=== PATIENT | male | born 1960 | race Caucasian/White ===

== ENCOUNTER 2017-04-26 10:20 | Emergency (ER) | payer OTHER, MEDICAID ==
[2017-04-26 10:33] VITALS: RESP 17
--- NOTE | 2017-04-26 11:10 | EDPHY ---
H & P Smoking Status: Light smoker Time Seen by Provider: 04/26/17 10:49 HPI/ROS: CHIEF COMPLAINT: Blood in left ear HISTORY OF PRESENT ILLNESS: 56-year-old male presents to the emergency department with currently in custody at the [facility] and presents with [facility] with complaints of blood in his ear since yesterday. Patient states that he was playing a rough came of hand ball in prison and was hit multiple times in his left ear. He is now having pain and having blood draining from his left ear. The patient had surgery to the left ear 20 years ago and had a mastoidectomy and has 100% hearing loss in the left ear since the surgery. No symptoms in the right ear. No URI symptoms. No chest pain or difficulty breathing. No abdominal pain. No headache. No neck pain. REVIEW OF SYSTEMS: Constitutional: No fever, no chills. Eyes: No double or blurry vision. ENT: Blood in left ear as noted above. No sore throat. Respiratory: No cough, no shortness of breath. Cardiac: No chest pain. Gastrointestinal: No abdominal pain, vomiting or diarrhea. Genitourinary: No dysuria. Musculoskeletal: No neck or back pain. Skin: No rashes. Neurological: No headache. (Nakita Brown) Past Medical/Surgical History: Hypertension, anxiety, depression, bipolar, constipation, pancreatitis, liver cancer, mastoidectomy left ear, left ear surgery, chronic hearing loss left ear , orthopedic surgery (Nakita Brown) Social History: (Nakita Brown) Physical Exam: General Appearance: Alert, no distress. 168/96, heart rate 75, 96% on room air. Eyes: Pupils equal and round. Extraocular motions are all intact. ENT: Mouth: Mucous membranes moist. Right ear is clear. The left ear reveals scar tissue involving the majority of the left tympanic membrane. There is some bright red blood noted in the external auditory canal, however it is not pooling or dripping out of his ear. I am unable to visualize anything behind the tympanic membrane due to the scar tissue. Looking at the left ear there is no swelling, redness or bruising. No lacerations. There is no pain postauricular or pre-auricular. No tragal motion tenderness. Respiratory: No wheezing, rhonchi, or rales, lungs are clear to auscultation. Cardiovascular: Regular rate and rhythm. Gastrointestinal: Abdomen is soft and nontender, no masses, no rebound or guarding, bowel sounds normal. Neurological: Alert and oriented x 3, cranial nerves II through XII grossly intact Skin: Warm and dry, no rashes. Musculoskeletal: Nontender to palpate along the cervical, thoracic or lumbar spine. Neck is supple. Extremities: Full range of motion and no peripheral edema. Psychiatric: Patient is oriented X 3, there is no agitation. (Nakita Brown) Constitutional: Initial Vital Signs Temperature (C) 36.5 C 04/26/17 10:26 Heart Rate 75 04/26/17 10:26 Respiratory Rate 17 04/26/17 10:26 Blood Pressure 168/96 H 04/26/17 10:26 O2 Sat (%) 96 04/26/17 10:26 O2 Delivery Mode Room Air Allergies/Adverse Reactions: Penicillins Allergy (Severe, Verified 04/26/17 10:26) Swelling/neck,face,throat Home Medications: Medication Instructions Recorded Ciprofloxacin/Dexamethasone 4 rc LEFTEAR BID #0 otic.btl 04/26/17 [Ciprodex] Metformin 1000 mg 04/26/17 PRILOSEC 04/26/17 Medical Decision Making ED Course/Re-evaluation: 56-year-old male with a history of previous left mastoidectomy presents with blood in his left ear after playing handball in prison. I spoke with on-call ENT physician it administrative assistant, Kaiden, who recommended starting the patient on Ciprodex otic drops 4 drops twice daily for 1 week. He states that even if he had a ruptured tympanic membrane which may be hard to visualize , he still recommended placing the patient on Ciprodex otic drops and they would see the patient in follow-up next week. This was explained to the patient as well as the [facility] who was at bedside who verbalized understanding and agreed. (Nakita Brown) I did not see this patient while he was in the emergency department. However his care was discussed with the PA while the patient was in the department. I agree with treatment plan and management (Gabriel Davies) Departure - Departure Disposition: Home, Routine, Self-Care Clinical Impression: Trauma left ear, Pain in left ear Condition: Good Instructions: Earache (ED) Additional Instructions: Ciprodex drops 4 drops twice daily for 7 days to the left ear. Follow up with ENT this week to recheck. Return to the emergency department or call ENT if you developed a large amount of brisk bleeding from your left ear or any other concerns. Referrals: Johann Ivory MD [Medical Doctor] - 5-7 days, call for appt. (ENT on-call) Prescriptions: Ciprofloxacin/Dexamethasone [Ciprodex] 4 rc LEFTEAR BID #0 otic.btl
[2017-04-26 12:24] VITALS: BP 134/81; PULSE 84; TEMP 98.1; O2SAT 95
== END 2017-04-26 12:23 | disposition home or self-care (01) ==
DX: S09.91XA Unspecified injury of ear, initial encounter (principal); I10 Essential (primary) hypertension; F17.200 Nicotine dependence, unspecified, uncomplicated; Z85.05 Personal history of malignant neoplasm of liver; W22.8XXA Striking against or struck by other objects, initial encounter; Y92.149 Unspecified place in prison as the place of occurrence of the external cause; Y99.8 Other external cause status; Y93.83 Activity, rough housing and horseplay

== ENCOUNTER 2017-05-31 23:53 | Emergency (ER) | payer OTHER, MEDICAID ==
[2017-06-01 00:06] VITALS: BP 154/76; PULSE 80; RESP 16; TEMP 97.9; O2SAT 93
--- NOTE | 2017-06-01 00:21 | EDPHY ---
H & P Smoking Status: Light smoker Time Seen by Provider: 06/01/17 00:18 HPI/ROS: CHIEF COMPLAINT: Abscess on back HISTORY OF PRESENT ILLNESS: 56-year-old male currently incarcerated arrives via shows diabetes complaining of a progressively enlarging left back abscess which was incised and drained by the physician at the group home 5 days ago but continues to be painful and erythematous. He is on oral doxycycline. No fever no chills no nausea no vomiting. PHYSICAL EXAM (Prior to examination, patient consented to physical exam, hands were washed and my usual and customary physical exam procedures followed) 1) GENERAL: Well-developed, well-nourished, alert and oriented. Appears to be in no acute distress. 2) HEAD: Normocephalic 3) HEENT: sclera anicteric 4) LUNGS: Breathing comfortably. 5) SKIN: left back there is a 4 cm x 2 cm area of erythema induration with central fluctuance and incision. No active drainage . No crepitus (Valery Holcomb) Constitutional: Initial Vital Signs Temperature (C) 36.6 C 05/31/17 23:57 Heart Rate 80 05/31/17 23:57 Respiratory Rate 16 05/31/17 23:57 Blood Pressure 154/76 H 05/31/17 23:57 O2 Sat (%) 93 05/31/17 23:57 O2 Delivery Mode Room Air Allergies/Adverse Reactions: Penicillins Allergy (Severe, Verified 05/31/17 23:55) Swelling/neck,face,throat Home Medications: Medication Instructions Recorded Doxycycline Hyclate 05/31/17 Glyburide 05/31/17 MOTRIN 05/31/17 Ranitidine HCl 05/31/17 MDM/Departure - MDM Procedures: Procedure: Abscess drainage. The patient's abscess was located on the left-sided back. I obtained verbal consent from the patient to drain the abscess who was informed about the possibility of bleeding and pain. The abscess was incised with a 11. scalpel and a moderate amount of purulent drainage was expressed. I irrigated the wound . The patient tolerated the procedure well. The procedure was performed by myself. (Valery Holcomb) ED Course/Re-evaluation: Recommend patient continue his antibiotics until finished. He will follow up with the group home nurse in the group home medical provider.. Doubt necrotizing fasciitis. Doubt sepsis. (Valery Holcomb) PHYSICIAN DOCUMENTATION: The patient was evaluated and managed by the Physician Receiving Tank Operator. My co- signature indicates that I have reviewed this chart and I agree with the findings and plan of care as documented. I am the secondary supervising physician. (Enid Suresh) - Depart Disposition: Home, Routine, Self-Care Clinical Impression: Abscess of back Condition: Good Instructions: Abscess (ED) Additional Instructions: Keep taking your antibiotics until finished Referrals: Follow-up, with the group home nurse in 1 day [Other] - As per Instructions
== END 2017-06-01 00:31 | disposition home or self-care (01) ==
PROC: 0H96XZZ Drainage of Back Skin, External Approach (ICD-10-PCS; principal; 2017-05-31)
DX: L02.212 Cutaneous abscess of back [any part, except buttock and flank] (principal)

== ENCOUNTER 2019-03-09 11:44 | Emergency (ER) | payer MEDICAID, OTHER ==
--- NOTE | 2019-03-09 12:00 | EDPHY ---
H & P Stated Complaint: cough, lung pain Time Seen by Provider: 03/09/19 11:55 HPI/ROS: HPI: This is a 58-year-old male who presents with Chief Complaint: Cough, lung pain Location: Chest Quality: Cough, pain Duration: Signs and Symptoms: no shortness of breath at rest, no shortness of breath on exertion, + nonproductive cough, no chest pain, no palpitations, no lower extremity edema, no wheezing, no orthopnea, no paroxysmal nocturnal dyspnea, no fever, no injury/trauma, no hemoptysis, no carpal pedal spasms, no hemoptysis Timing: Sudden onset, worse last Severity: [id number] Context: Patient reports 2 days ago he was in 100 year old home in the attic approximately for 15 min taking pictures of the old instillation with the insurance professional. He reports that last night he started to developed a nonproductive dry cough with generalized anterior and posterior chest discomfort with coughing episodes. Patient is a current every day smoker for the last 3 months after quitting for 4 years. No history of lung disease. Denies fever, chest pain, shortness of breath, lower extremity edema. Modifying Factors: None Comment: ROS: A comprehensive 10 system review of systems is otherwise negative aside from elements mentioned in the history of present illness. MEDICAL/SURGICAL/SOCIAL HISTORY: Medical history: Generally healthy. Does not take any regular medications. Surgical history: Denies Social history: Owns a [employer] business. . Smoker. CONSTITUTIONAL: Extremely well-appearing polite middle-aged white male, awake and alert, no obvious distress HEENT: Atraumatic and normocephalic, PERRL, EOMI. Nares patent; no rhinorrhea; no nasal mucosal edema. Tympanic membranes clear. Oropharynx clear, no exudate and moist pink mucosa. Airway patent. No lymphadenopathy. No meningismus. Cardiovascular: Normal S1/S2, regular rate, regular rhythm, without murmur rub or gallop. PULMONARY/CHEST: Symmetrical and nontender. Clear to auscultation bilaterally. Good air movement. No accessory muscle usage. ABDOMEN: Soft, nondistended, nontender, no rebound, no guarding, no peritoneal signs, no masses or organomegaly. No CVAT. EXTREMITIES: 2/2 pulses, strength 5/5, no deformities, no clubbing, no cyanosis or edema. NEUROLOGICAL: no focal neuro deficits. GCS 15. SKIN: Warm and dry, no erythema. no rash. Good capillary refill. Source: Patient Exam Limitations: No limitations - Personal History Current Tetanus/Diphtheria Vaccine: Yes Current Tetanus Diphtheria and Acellular Pertussis (TDAP): Yes Tetanus Vaccine Date: 2011 - Medical/Surgical History Hx Asthma: No Hx Chronic Respiratory Disease: No Hx Diabetes: Yes Hx Cardiac Disease: No Hx Renal Disease: No Hx Cirrhosis: No Hx Alcoholism: Yes Hx HIV/AIDS: No Hx Splenectomy or Spleen Trauma: No Other PMH: pmh- HTN (Untreated at this time), Anxiety, depression, bipolar, constipation, pancreatitis, liver cancer,. psh- mastoidectomy, right forearm sx on 08/06/15, right knee sx - Social History Smoking Status: Current every day smoker Constitutional: Initial Vital Signs Temperature (C) 36.3 C 03/09/19 11:48 Heart Rate 77 03/09/19 11:48 Respiratory Rate 16 03/09/19 11:48 Blood Pressure 140/80 H 03/09/19 11:48 O2 Sat (%) 96 03/09/19 11:48 O2 Delivery Mode Room Air Allergies/Adverse Reactions: Penicillins Allergy (Severe, Verified 03/09/19 11:47) Swelling/neck,face,throat Home Medications: Medication Instructions Recorded MOTRIN 05/31/17 Albuterol Sulfate [Proair Hfa] 1 - 2 puffs IH Q4-6PRN PRN #1 03/09/19 hfa.[email or web address] Metformin 1000 mg 03/09/19 predniSONE [Deltasone] 20 mg PO DAILY 4 Days #4 tablet 03/09/19 Medical Decision Making - Diagnostics Imaging Results: Imaging Impressions Chest X-Ray 03/09/19 12:00 Impression: No acute findings in the chest. ED Course/Re-evaluation: Vital signs reviewed and show no hypoxia, tachycardia. IV access, laboratory studies, chest x-ray ordered Given DuoNeb and IV Solu-Medrol 40 mg with improvement in symptoms per patient Suspect chemical pneumonitis 1240: Chest x-ray my read shows no opacity, no effusion, no widened mediastinum , no pneumothorax Patient given albuterol inhaler and short burst of prednisone x 4 days. This patient was seen under the supervision of my secondary supervising physician. I evaluated care for this patient with attending. Differential Diagnosis: Shortness of breath including but not limited to pulmonary infectious process, COPD, asthma, pulmonary embolus and congestive heart failure. - Data Points Laboratory Results: Laboratory Results 03/09/19 12:07 03/09/19 12:07 03/09/19 03/09/19 12:07 12:07 WBC 6.92 10^3/uL 10^3/uL (3.80-9.50) RBC 5.56 10^6/uL 10^6/uL (4.40-6.38) Hgb 16.3 g/dL g/dL (13.7-17.5) Hct 48.4 % % (40.0-51.0) MCV 87.1 fL fL (81.5-99.8) MCH 29.3 pg pg (27.9-34.1) MCHC 33.7 g/dL g/dL (32.4-36.7) RDW 13.0 % % (11.5-15.2) Plt Count 219 10^3/uL 10^3/uL (150-400) MPV 10.2 fL fL (8.7-11.7) Neut % (Auto) 67.9 % % (39.3-74.2) Lymph % (Auto) 19.4 % % (15.0-45.0) [place] % (Auto) 10.7 % % (4.5-13.0) Eos % (Auto) 1.3 % % (0.6-7.6) Baso % (Auto) 0.6 % % (0.3-1.7) Nucleat RBC Rel Count 0.0 % % (0.0-0.2) Absolute Neuts (auto) 4.70 10^3/uL 10^3/uL (1.70-6.50) Absolute Lymphs (auto) 1.34 10^3/uL 10^3/uL (1.00-3.00) Absolute Monos (auto) 0.74 10^3/uL 10^3/uL (0.30-0.80) Absolute Eos (auto) 0.09 10^3/uL 10^3/uL (0.03-0.40) Absolute Basos (auto) 0.04 10^3/uL 10^3/uL (0.02-0.10) Absolute Nucleated RBC 0.00 10^3/uL 10^3/uL (0-0.01) Immature Gran % 0.1 % % (0.0-1.1) Immature Gran # 0.01 10^3/uL 10^3/uL (0.00-0.10) Sodium 135 mEq/L mEq/L (135-145) Potassium 4.4 mEq/L mEq/L (3.5-5.2) Chloride 105 mEq/L mEq/L (97-110) Carbon Dioxide 22 mEq/l mEq/l (22-31) Anion Gap 8 mEq/L mEq/L (6-14) BUN 22 mg/dL mg/dL (7-23) Creatinine 0.8 mg/dL mg/dL (0.7-1.3) Estimated GFR > 60 Glucose 124 mg/dL H mg/dL (70-100) Calcium 9.5 mg/dL mg/dL (8.5-10.4) Medications Given: Discontinued Medications Albuterol/Ipratropium (Duoneb) 3 ml IH EDNOW ONE Stop: 03/09/19 12:02 Last Admin: 03/09/19 12:13 Dose: 3 ml Methylprednisolone Sodium Succinate (Solu-Medrol) 40 mg IVP EDNOW ONE Stop: 03/09/19 12:02 Last Admin: 03/09/19 12:13 Dose: 40 mg Departure - Departure Disposition: Home, Routine, Self-Care Clinical Impression: Pneumonitis Condition: Good Instructions: Pneumonitis (ED) Additional Instructions: Consume a minimum of 8-10 glasses of water or electrolyte fluid replacement drinks that include Gatorade, Powerade, Pedialyte. Please consider tobacco cessation. Use albuterol inhaler every 4-6 hours as needed for shortness of breath, wheezing. Take prednisone daily for the next 4 days. Follow-up with primary care provider if symptoms persist longer than 7 days for further evaluation. Referrals: Melonie Roblero MD [[facility] [place] Primary Care Provider] - As per Instructions Prescriptions: Albuterol Sulfate [Proair Hfa] 1 - 2 puffs IH Q4-6PRN PRN #1 hfa.aer.ad PRN Reason: Short Of Breath/Dyspnea predniSONE [Deltasone] 20 mg PO DAILY 4 Days #4 tablet
[2019-03-09] MEDS ORDERED: IPRATROPIUM/ALBUTEROL 3 ML DEYVIAL IH ONE (12:01)
[2019-03-09] MEDS ORDERED: methylPREDNISolone SOD SUCC 40 MG/ML VIAL IVP ONE (12:01)
[2019-03-09 12:21] LABS: PLATELET COUNT 219 10^3/uL (150-400)
[2019-03-09 13:12] VITALS: BP 138/74
== END 2019-03-09 13:10 | disposition home or self-care (01) ==
DX: J18.9 Pneumonia, unspecified organism (principal); I10 Essential (primary) hypertension
CPT/HCPCS: 96374; J2920

== ENCOUNTER 2019-05-01 14:36 | Observation (INO) | payer MEDICAID | END 2019-05-02 10:15 | disposition home or self-care (01) | LOC: F3E 20:20 ==